=== PATIENT | male | born 1990 | race Caucasian/White ===

== ENCOUNTER 2020-07-08 10:25 | Emergency (ER) | payer OTHER ==
[~2020-07-08] VITALS: Ht 175.3 cm; Wt 113.6 kg
[2020-07-08 12:46] VITALS: BP 117/63
== END 2020-07-08 12:47 | disposition home or self-care (01) ==
LOC: EMS 10:37
DX: S86.811A Strain of other muscle(s) and tendon(s) at lower leg level, right leg, initial encounter (principal); X50.0XXA Overexertion from strenuous movement or load, initial encounter; Y93.89 Activity, other specified; Y92.89 Other specified places as the place of occurrence of the external cause; Y99.8 Other external cause status
CPT/HCPCS: Z7502

== ENCOUNTER 2021-04-24 01:23 | Emergency (ER) | payer OTHER ==
[~2021-04-24] VITALS: Ht 167.6 cm; Wt 106.8 kg
[2021-04-24] MEDS ORDERED: PROPARACAINE HCL 0.5% 15 ML OPHTHALMIC SOLUTION OU ONE (03:00)
[2021-04-24] MEDS ORDERED: FLUORESCEIN SODIUM 1 MG STRIP ONE (03:08)
[2021-04-24 04:30] VITALS: BP 120/71
== END 2021-04-24 05:08 | disposition home or self-care (01) ==
LOC: EMS 01:23
DX: H10.213 Acute toxic conjunctivitis, bilateral (principal)
CPT/HCPCS: 99283

== ENCOUNTER 2022-10-22 10:35 | Emergency (ER) | payer OTHER ==
[~2022-10-22] VITALS: Ht 175.3 cm; Wt 127.3 kg
[2022-10-22] MEDS ORDERED: SODIUM CHLORIDE 0.9% 1,000 ML IV ONE ×2 (12:00→12:45)
[2022-10-22] MEDS ORDERED: 0.9% SODIUM CHLORIDE 10 ML SYRINGE IVP PRN (12:00)
[2022-10-22] MEDS ORDERED: LEVOFLOXACIN 750 MG/D5% WATER 150 ML IV ONE (12:00)
[2022-10-22] MEDS ORDERED: ACETAMINOPHEN 500 MG TABLET PO ONE (12:15)
[2022-10-22 12:38] LABS: BASOPHILS % (AUTO) 0.3 % (0.0-2.0); EOSINOPHILS % (AUTO) 0.3 % (1.0-6.0); HEMATOCRIT 38.8 % (41-53); HEMOGLOBIN 13.7 g/dL (13.5-17.5); LYMPHOCYTES # (AUTO) 0.5 K/uL (1.0-4.8); LYMPHOCYTES % (AUTO) 8.7 % (22.0-44.0); MEAN CORPUSCULAR HEMOGLOBIN 31.8 pg (26.0-34.0); MEAN CORPUSCULAR HGB CONC 35.2 G/dL (31.0-37.0); MEAN CORPUSCULAR VOLUME 90 fL (80-100); MONOCYTES # (AUTO) 0.5 K/uL (0.1-1.0); MONOCYTES % (AUTO) 9.4 % (2.0-9.0); NEUTROPHILS # (AUTO) 4.4 K/uL (1.8-7.7); NEUTROPHILS % (AUTO) 81.3 % (40.0-70.0); PLATELET COUNT (AUTO) 189 K/uL (150-450); RED BLOOD CELL COUNT(AUTO) 4.31 MIL/uL (4.50-5.90)
[2022-10-22 12:54] LABS: INR 1.2 (0.9-1.1); PROTHROMBIN TIME 12.5 SEC (9.4-11.6)
[2022-10-22 13:02] LABS: ANION GAP 10 mmol/L (8-16); CALCIUM, TOTAL 9.1 mg/dL (8.8-10.5); CARBON DIOXIDE 28 mmol/L (22-29); CHLORIDE 97 mmol/L (98-107); CREATININE 1.27 mg/dL (0.60-1.30); GLUCOSE,RANDOM 97 mg/dL (70-110); POTASSIUM 3.7 mmol/L (3.5-5.1); SODIUM SERUM 135 mmol/L (136-145); UREA NITROGEN, BLOOD 12 mg/dL (7-18)
[2022-10-22] MEDS ORDERED: SODIUM CHLORIDE 0.9% 100 ML ONE (13:03)
[2022-10-22] MEDS ORDERED: IOHEXOL 350 MG/ML 100 ML VIAL ONE (13:03)
[2022-10-22 13:05] LABS: ALANINE AMINOTRANSFERASE 47 U/L (12-78); ALBUMIN 3.9 g/dL (3.4-5.0); ALKALINE PHOSPHATASE 95 U/L (46-116); ASPARTATE AMINOTRANSFERASE 29 U/L (15-37); BILIRUBIN,TOTAL 0.8 mg/dL (0.1-1.0); TOTAL PROTEIN, SERUM 8.1 g/dL (6.4-8.2)
[2022-10-22 13:06] LABS: GLOMERULAR FILTR. RATE CALC > 60 mL/min (>60)
[2022-10-22 13:09] LABS: LACTIC ACID 0.8 mmol/L (0.4-2.0)
[2022-10-22 14:51] LABS: APPEARANCE,URINE CLEAR (CLEAR); GLUCOSE, URINE (UA) NEGATIVE (NEGATIVE); KETONES,URINE TRACE mg/dL (NEGATIVE); LEUKOCYTE ESTERASE ,URINE NEGATIVE (NEGATIVE); NITRATE,URINE NEGATIVE (NEGATIVE); OCCULT BLOOD,URINE NEGATIVE (NEGATIVE); PH,URINE 5.5 (5.0-8.0); PROTEIN,URINE TRACE mg/dL (NEGATIVE); SPECIFIC GRAVITIY, URINE 1.018 (1.003-1.030); UROBILINOGEN,URINE <=1.0 mg/dL (<=1.0)
[2022-10-22 15:33] LABS: COVID AG,FIA SOURCE NASAL SWAB
[2022-10-22 15:48] LABS: BILIRUBIN,URINE SMALL (NEGATIVE)
[2022-10-22 16:11] LABS: INFLUENZA TYPE A NEGATIVE FOR TYPE A (NEGATIVE); INFLUENZA TYPE B NEGATIVE FOR TYPE B (NEGATIVE)
[2022-10-22 16:32] LABS: BACTERIA,URINE None Seen /HPF (None Seen); RBC,URINE 0-2 /HPF (0-2); SQUAMOUS EPITHELIAL CELL,UR Few /LPF (None Seen); WBC,URINE None Seen /HPF (0-5)
[2022-10-22] MEDS ORDERED: BENZ-70 PO (17:11)
[2022-10-22 17:23] VITALS: BP 128/80
== END 2022-10-22 17:45 | disposition home or self-care (01) ==
LOC: EMS 11:53
DX: J18.9 Pneumonia, unspecified organism (principal); Z20.822 Contact with and (suspected) exposure to COVID-19; F10.20 Alcohol dependence, uncomplicated; J11.1 Influenza due to unidentified influenza virus with other respiratory manifestations; R06.02 Shortness of breath; R00.0 Tachycardia, unspecified
CPT/HCPCS: 99285; 96365; 71260; 71045; 87426; 80053; 81001; 83605; 85025; 85610; 87040; 87804; 36415; 93005; J1956; Q9967; J7030; J7050